=== PATIENT | male | born 1990 ===

== ENCOUNTER 2024-07-14 08:57 | Day surgery (SDC) | payer BC ==
[~2024-07-14 08:57] MED LIST: Midazolam 1 MG/ML 2 ML SDV ONE; Propofol 200 MG/20 ML SDV ONE
[2024-07-14] MEDS ORDERED: Sodium Chloride 0.9% 10 ML Syringe FLUSH PRN (09:15)
[2024-07-14] MEDS: Lactated Ringers 1,000 ML IV SCH (09:40)
== END 2024-07-14 12:05 | disposition home or self-care (01) ==
LOC: LL.SDS 08:57
PROVIDERS: ATTEND Surgery
DX: K92.1 Melena (principal)
CPT/HCPCS: 00811; 45378; J2250; J2704; J7120